=== PATIENT | female | born 2000 | race Caucasian/White ===

== ENCOUNTER 2020-11-29 00:30 | Emergency (ER) | payer OTHER ==
[~2020-11-29] VITALS: Ht 157.5 cm; Wt 65.8 kg
[2020-11-29] MEDS ORDERED: MAPAP500 MG PO (02:44)
[2020-11-29] MEDS ORDERED: LIDODERM1 EACH TOP (02:44)
[2020-11-29] MEDS ORDERED: IBU600 MG PO (02:44)
[2020-11-29] MEDS ORDERED: VALIUM5 MG PO (02:44)
== END 2020-11-29 03:04 | disposition home or self-care (01) ==
LOC: ED 00:30
DX: M62.830 Muscle spasm of back (principal)
CPT/HCPCS: 81001; 84703; 99284-25; A9270

== ENCOUNTER 2022-12-28 18:28 | Emergency (ER) | payer OTHER ==
[~2022-12-28] VITALS: Ht 157.5 cm; Wt 65.8 kg
[~2022-12-28 18:28] MED LIST: IBU600 MG PO; LIDODERM1 EACH TOP; MAPAP500 MG PO; VALIUM5 MG PO
[2022-12-28 18:59] LABS: BILIRUBIN, URINE NEGATIVE (negative); BLOOD/HGB, URINE LARGE (Negative); KETONE, URINE >=80 (Negative); LEUK ESTERASE, URINE NEGATIVE (negative); NITRITE, URINE NEGATIVE (negative); PH, URINE 5.5 (5-7)
[2022-12-28 19:05] LABS: CRYSTALS, URINE AMORPHOUS URATES 4+ (0-1+); EPITHELIAL CELLS, URINE SQUAMOUS 1+ /lpf (0-1+); RED BLOOD CELLS, URINE >50 /hpf (0-5); WHITE BLOOD CELLS, URINE 0-1 /HPF (0-5)
[2022-12-28 19:06] LABS: BACTERIA, URINE 1+ /hpf (negative); CASTS, URINE NONE SEEN \\lpf; REFLEX CULTURE, URINE No (No)
[2022-12-28] MEDS ORDERED: FLOMAX0.4 MG PO (21:16)
[2022-12-28] MEDS ORDERED: HYDROCODON-ACE1 EA10 PO (21:16)
[2022-12-28] MEDS ORDERED: ONDANSETRON ODT8 MG PO (21:16)
[2022-12-28 21:56] VITALS: BP 116/62
== END 2022-12-28 21:57 | disposition home or self-care (01) ==
LOC: ED 18:28
PROVIDERS: Emergency Medicine
DX: N13.2 Hydronephrosis with renal and ureteral calculous obstruction (principal)
CPT/HCPCS: 74176; 81001; 84703; 99284-25; A9270